=== PATIENT | female | born 2000 | race American Indian/Alaskan Native ===

== ENCOUNTER 2021-06-03 16:48 | Emergency (ER) | payer SELFPAY ==
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
--- NOTE | 2021-06-03 18:48 | XRay Report ---
Abdominal series with frontal chest 3 views INDICATION: Chest and abdominal pain IMPRESSION: No acute cardiopulmonary abnormality. No acute findings of the abdomen appreciated. Signer Name: Ananth Brothers MD Signed: 06/03/2021 6:44 PM Workstation Name: [id number]
[2021-06-03 19:47] LABS: Alanine Aminotransferase 8 units/L (7-56); Albumin 4.3 g/dL (3.9-5); Blood Urea Nitrogen 7 mg/dL (7-17); Calcium 9.4 mg/dL (8.4-10.2); Hemolysis Index 2
[2021-06-03 19:51] LABS: Basophils % (Auto) 0.3 % (0.0-1.8); Eosinophils % (Auto) 0.6 % (0.0-4.3); Hematocrit 37.3 % (30.3-42.9); Hemoglobin 12.5 gm/dl (10.1-14.3); Lymphocytes # (Auto) 2.4 K/mm3 (1.2-5.4); Mean Corpuscular HGB Conc 33 % (30-34); Mean Corpuscular Volume 85 fl (79-97); Monocytes # (Auto) 0.4 K/mm3 (0.0-0.8); Platelet Count 257 K/mm3 (140-440); Red Blood Count 4.42 M/mm3 (3.65-5.03); Red Cell Distribution Width 13.2 % (13.2-15.2)
[2021-06-03 19:52] LABS: BUN/Creatinine Ratio 14
== END 2021-06-03 21:22 | disposition left against medical advice (07) ==
LOC: ED 16:48
DX: Z00.8 Encounter for other general examination (principal); Z53.21 Procedure and treatment not carried out due to patient leaving prior to being seen by health care provider
CPT/HCPCS: 36415; 74022; 80053; 83690; 84703; 85025